=== PATIENT | male | born 1960 | race Caucasian/White ===

== ENCOUNTER → 2017-08-06 | Outpatient (CLI) | payer BC ==
[~2017-08-06] MED LIST: FEXO1TAB29 PO; PRED10TA PO; TAMS0.4C2 PO
== END ==
LOC: STAR 13:08
PROVIDERS: ATTEND Otolaryngology
DX: Z02.9 Encounter for administrative examinations, unspecified (principal)

== ENCOUNTER 2017-08-10 09:02 | Day surgery (SDC) | payer BC ==
[2017-08-06 14:17] VITALS: BP 154/112
[~2017-08-10] VITALS: Ht 177.8 cm; Wt 97.3 kg
[~2017-08-10 09:02] MED LIST changes: +BACITRACIN OINT 500U/GM, 15 GM ONE; +EPINEPHRINE 1 MG/ML, 1ML ONE; +EPINEPHRINE TOPICAL SOLN 1 MG/ML, 30ML ONE; +FENTANYL PF 250 MCG/5ML ONE; +FLUORESCEIN OPHTHALMIC 1 MG STRIP ONE; +LIDOCAINE 1%, 20ML ONE; +MIDAZOLAM 1 MG/ML, 2ML ONE; +OXYMETAZOLINE NASAL SPRAY 0.05%, 15ML ONE
[2017-08-10] MEDS ORDERED: LACTATED RINGERS 1,000 ML IV SCH (09:42)
[2017-08-10] MEDS ORDERED: ROCURONIUM 10 MG/ML,10ML ONE (09:48)
[2017-08-10] MEDS ORDERED: GLYCOPYRROLATE 0.2MG/1ML, 5ML ONE (09:48)
[2017-08-10] MEDS ORDERED: DEXAMETHASONE 4 MG/ML, 1ML ONE (09:48)
[2017-08-10] MEDS ORDERED: SUCCINYLCHOLINE 20 MG/ML, 10ML ONE (09:48)
[2017-08-10] MEDS ORDERED: CEFAZOLIN 1,000 MG ONE (09:48)
[2017-08-10] MEDS ORDERED: PROPOFOL 10 MG/ML, 20ML ONE (09:48)
[2017-08-10] MEDS ORDERED: ONDANSETRON 2MG/ML, 2ML ONE (09:48)
[2017-08-10] MEDS ORDERED: NEOSTIGMINE 1 MG/ML, 10ML ONE (09:48)
[2017-08-10] MEDS ORDERED: HYDROcodone/APAP 7.5-325MG/15ML UDC PO PRN (10:00)
[2017-08-10] MEDS ORDERED: PROMETHAZINE 25 MG/ML, 1ML IV PRN (10:00)
[2017-08-10] MEDS ORDERED: hydrALAzine 20 MG/ML, 1ML IV PRN (10:00)
[2017-08-10] MEDS ORDERED: OXYcodone 5 MG/5 ML ORAL.SOL UDC PO PRN (10:00)
[2017-08-10] MEDS ORDERED: morphine SULFATE 10 MG/ML, 1ML IV PRN (10:00)
[2017-08-10] MEDS ORDERED: LABETALOL 5MG/ML, 20ML IV PRN (10:00)
[2017-08-10] MEDS ORDERED: FENTANYL PF 100 MCG/2ML IV PRN (10:00)
[2017-08-10] MEDS ORDERED: ACETAMINOPHEN 325 MG TABLET PO PRN (10:00)
[2017-08-10] MEDS ORDERED: ONDANSETRON 2MG/ML, 2ML IVPush PRN (10:00)
[2017-08-10] MEDS ORDERED: FENTANYL PF 100 MCG/2ML ONE (11:20)
[2017-08-10] MEDS ORDERED: ACETAMINOPHEN 650 MG/20.3 ML UDC ONE (12:24)
[2017-08-10] MEDS ORDERED: OXYcodone 5 MG/5 ML ORAL.SOL UDC ONE (12:24)
== END 2017-08-10 14:10 ==
LOC: OUT 09:02
PROVIDERS: ATTEND Otolaryngology
DX: J34.2 Deviated nasal septum (principal); J33.9 Nasal polyp, unspecified; J32.1 Chronic frontal sinusitis; J32.2 Chronic ethmoidal sinusitis; J32.3 Chronic sphenoidal sinusitis; J32.4 Chronic pansinusitis; I10 Essential (primary) hypertension
CPT/HCPCS: 30520; 31255; 31267; 31276; 31288; 61782; 87070; 87075; 87205; 88304; 88311; J0171; J0330; J0690; J1100; J2250; J2405; J2704; J3010; J3490; J7120; J2710